=== PATIENT | male | born 1990 | race Two or more races ===

== ENCOUNTER 2017-01-18 02:29 | Emergency (ER) | payer SELFPAY ==
[~2017-01-18] VITALS: Ht 167.6 cm; Wt 77.1 kg
[2017-01-18] MEDS ORDERED: NKM (02:42)
[2017-01-18 02:45] VITALS: BP 130/60
[2017-01-18 02:47] VITALS: BP 130/60
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
== END 2017-01-18 03:00 ==
LOC: EMR 03:00
DX: S00.81XA Abrasion of other part of head, initial encounter (principal); Y35.891A Legal intervention involving other specified means, law enforcement official injured, initial encounter; Y92.89 Other specified places as the place of occurrence of the external cause
CPT/HCPCS: 99283